=== PATIENT | female | born 2000 | race Caucasian/White ===

== ENCOUNTER 2021-02-24 18:22 | Emergency (ER) | payer BC ==
[~2021-02-24] VITALS: Ht 167.6 cm; Wt 63.5 kg
[2021-02-24 19:14] LABS: *BILIRUBIN,URIN NEGATIVE (NEGATIVE); *BLOOD, URINE 2+ (NEGATIVE); *CLARITY,URINE CLEAR (CLEAR); *COLOR,URINE LIGHT YELLOW (YELLOW); *KETONES,URINE NEGATIVE (NEGATIVE); *UROBILINOGEN,URINE 0.2 E.U./dl (NORMAL); LEUKOCYTE ESTERASE ,URINE NEGATIVE (NEGATIVE); NITRITE, URINE NEGATIVE (NEGATIVE); UGLUCOSE NEGATIVE (NEGATIVE)
[2021-02-24 19:56] LABS: HEMATOCRIT 39.7 % (31.2-41.9); MEAN CORPUSCULAR HEMOGLOBIN 29.7 uug (24.7-32.8); MEAN CORPUSCULAR VOLUME 87.5 fL (75.5-95.3); PLATELET COUNT (AUTO) 203 K/uL (179-408)
--- NOTE | 2021-02-24 20:00 | NUR ---
Patient is resting comfortably in bed watching television, no acute distress noted.
[2021-02-24 20:06] LABS: ALANINE AMINOTRANSFERASE 18 U/L (14-59); ALKALINE PHOSPHATASE 39 U/L (50-136); ASPARTATE AMINOTRANSFERASE 14 U/L (15-37); BILIRUBIN,TOTAL 0.2 mg/dL (0.2-1.0); CARBON DIOXIDE 25 mmol/L (21-32); CHLORIDE 108 mmol/L (98-107); CREATININE 0.9 mg/dL (0.6-1.3); GLUCOSE 88 mg/dL (74-106); POTASSIUM 4.1 mmol/L (3.5-5.1); TOTAL PROTEIN, SERUM 7.5 g/dL (6.4-8.2); UREA NITROGEN, BLOOD 14 mg/dL (7-18)
[2021-02-24 20:16] LABS: BACTERIA,URINE NONE SEEN /HPF (NONE SEEN); SQUAMOUS EPITHELIAL CELL,UR FEW /HPF (NONE SEEN); WBC,URINE 0-3 /HPF (0-3)
[2021-02-24 20:16] LABS: BILIRUBIN,DIRECT < 0.1 mg/dL (0.0-0.2)
--- NOTE | 2021-02-24 20:18 | NUR ---
[employer] tech at bedside by patient.
[2021-02-24] MEDS ORDERED: HYDR-4209 PO (20:50)
[2021-02-24 20:56] VITALS: BP 120/64
--- NOTE | 2021-02-24 20:57 | NUR ---
Patient discharged to home in stable condition. Written and verbal after care instructions given. Patient verbalizes understanding of instructions. Stressed follow up or return to ER for worsening s/s. Patient ambulatory with steady gait, V/S stable, received paper Rx, and left with all personal belongings.
== END 2021-02-24 20:57 | disposition home or self-care (01) ==
LOC: ER 18:24
DX: R10.2 Pelvic and perineal pain (principal); Z97.5 Presence of (intrauterine) contraceptive device; M79.7 Fibromyalgia
CPT/HCPCS: 36415; 76856; 85025; 85730; A4663